=== PATIENT | male | born 1975 | race African-American/Black ===

== ENCOUNTER 2022-12-30 09:41 | Inpatient (IN) | payer BC ==
[2022-12-30] MEDS ORDERED: LEVALBUTEROL 1.25 MG/3 ML NEB ONE (10:26)
[2022-12-30] MEDS ORDERED: FUROSEMIDE 20 MG/ 2ML VIAL ONE (10:27)
[2022-12-30 10:41] LABS: SARS-CoV-2 Antigen Rapid Res Negative (Negative)
[2022-12-30 11:14] LABS: Absolute Lymphocytes (CBC) 2.6 K/uL (0.7-4.9); Lymphocytes % 23.4 % (15.3-44.8); MCV 85.2 fL (80-100); MPV 8.6 fL (7.6-11.3); RBC Red Blood Cell Count 5.86 M/uL (4.33-5.43)
[2022-12-30 11:15] LABS: Protime INR 0.93
--- NOTE | 2022-12-30 11:21 | ER ---
Nurse's Notes [facility] [place] Name: Duane Lazcano Age: 47 yrs Sex: Male : 1975 Arrival Date: 12/30/2022 Time: 09:44 Bed 20 Private MD: Jules Perdue V Diagnosis: Edema, unspecified;Dyspnea Presentation: 12/30 09:57 Chief complaint: Patient states: he was sent by his PCP for possible heart failure. ap3 Patient states he was recently treated for pneumonia at another facility. Patient continues to have shortness of breath on exertion, patient complains of swelling to the lower extremities, and feeling bloated. Coronavirus screen: At this time, the client does not indicate any symptoms associated with coronavirus-19. Ebola Screen: No symptoms or risks identified at this time. Initial Sepsis Screen: Does the patient meet any 2 criteria? RR > 20 per min. HR > 90 bpm. Yes Does the patient have a suspected source of infection? No. Patient's initial sepsis screen is negative. Risk Assessment: Do you want to hurt yourself or someone else? Patient reports no desire to harm self or others. Onset of symptoms was December 23, 2022. 09:57 Method Of Arrival: Ambulatory ap3 09:57 Acuity: MICHELLE 2 ap3 Triage Assessment: 10:28 General: Appears distressed, Behavior is anxious. Pain: Complains of pain in right leg ap3 and left leg Quality of pain is described as tightness. Neuro: Level of Consciousness is awake, alert, obeys commands, Oriented to person, place, time, situation, Gait is steady. Cardiovascular: Patient's skin is warm and dry. Respiratory: Reports shortness of breath Airway is patent. Historical: - Allergies: 10:27 No Known Allergies; ap3 - Home Meds: 10:27 amlodipine oral [Active]; losartan Oral [Active]; ap3 - PMHx: 10:27 Hypertensive disorder; ap3 - Immunization history:: Client reports receiving the 2nd dose of the Covid vaccine. - Social history:: Smoking status: Patient/guardian denies using tobacco. Screenin:44 [facility] ED Fall Risk Assessment (Adult) History of falling in the last 3 months, ld1 including since admission No falls in past 3 months (0 pts). Abuse screen: Denies threats or abuse. Denies injuries from another. Nutritional screening: No deficits noted. Tuberculosis screening: No symptoms or risk factors identified. Assessment: 10:44 General: Appears in no apparent distress. uncomfortable, Behavior is cooperative, ld1 anxious. Pain: Denies pain. Neuro: Level of Consciousness is awake, alert, obeys commands, Oriented to person, place, time, situation. Cardiovascular: Capillary refill < 3 seconds Patient's skin is warm and dry. Rhythm is sinus tachycardia. Cardiovascular:. Respiratory: Reports shortness of breath labored breathing Airway is patent Respiratory effort is even, labored, Breath sounds with crackles bilaterally. the patient has moderate shortness of breath. GI: Abdomen is round non-distended. : No signs and/or symptoms were reported regarding the genitourinary system. EENT: No signs and/or symptoms were reported regarding the EENT system. Derm: No signs and/or symptoms reported regarding the dermatologic system. Musculoskeletal: No signs and/or symptoms reported regarding the musculoskeletal system. 11:48 Reassessment: Patient and/or family updated on plan of care and expected duration. Pain ld1 level reassessed. Pt reports feeling better - "I can breath much better." Ultrasound at bedside. Patient states symptoms have improved. 11:48 Respiratory: Airway is patent Respiratory effort is even, labored, Respiratory pattern ld1 is regular, symmetrical, the patient has mild shortness of breath. Vital Signs: 09:57 BP 167 / 123; Pulse 126; Resp 22; Temp 97.7(O); Pulse Ox 90% on R/A; Weight 130.63 kg; ap3 Height 5 ft. 11 in. (180.34 cm); 10:29 Pulse Ox 96% on 2 lpm NC; ap3 11:42 BP 169 / 103; Pulse 124; Resp 20; Pulse Ox 97% on 3 lpm NC; ld1 11:48 BP 169 / 103; Pulse 119; Resp 27; Pulse Ox 96% on 3 lpm NC; ld1 12:56 BP 153 / 111; Pulse 114; Resp 22; Pulse Ox 96% on 3 lpm NC; ld1 09:57 Body Mass Index 40.17 (130.63 kg, 180.34 cm) ap3 09:57 patient placed on 2 listers nasal canula at this time. patients SpO2 recovered to 96% ap3 once placed on the oxygen. ED Course: 09:44 Patient arrived in ED. as 09:45 Jules Perdue MD is Private Physician. as 09:46 [facility] 09:46 Heladio Macias MD is Attending Physician. jmm 10:02 Triage completed. ap3 10:21 Julianne Goode, RN is Primary Nurse. ld1 10:21 Missed attempt(s): 22 gauge in left antecubital area. db 10:29 Arm band placed on right wrist. ap3 10:29 Patient has correct armband on for positive identification. Bed in low position. Call ap3 light in reach. Side rails up X 1. Adult w/ patient. secured entrance monitor on. Pulse ox on. NIBP on. Door closed. Noise minimized. 10:42 Radiology exam delayed due to patient receiving breathing treatment at this time. hr 10:44 No provider procedures requiring assistance completed. ld1 10:44 Missed attempt(s): 20 gauge in right hand. ld1 11:20 Jules Perdue MD is Hospitalizing Provider. [facility] 11:21 XRAY Chest (1 view) In Process Unspecified. EDMS 12:00 US Extremity Venous W Compression Kwaku In Process Unspecified. EDMS 14:07 Patient admitted, IV remains in place. ld1 Administered Medications: 10:43 Drug: Lasix (furosemide) 20 mg Route: IVP; Site: left hand; ld1 10:43 Drug: Xopenex (levalbuterol) (3) 1.25 mg Route: Inhalation; ld1 Medication: 10:44 VIS not applicable for this client. ld1 Outcome: 11:21 Decision to Hospitalize by Provider. [facility] 14:06 Admitted to Med/surg accompanied by tech, via wheelchair, room 413, with chart, Report ld1 called to KYLE Roche 14:06 Condition: stable 14:06 Instructed on the need for admit. 14:15 Patient left the ED. ld1 Signatures: Dispatcher [employer] EDMS Kan Martin PA PA [facility] Mari Neves Amelia as Prokisch, Amanda, RN RN ap3 Julianne Goode, KLYE RN ld1 Gracie Castle RN RN db Corrections: (The following items were deleted from the chart) 11:49 11:48 Respiratory: Airway is patent Respiratory effort is even, unlabored, Respiratory ld1 pattern is regular, symmetrical, the patient has mild shortness of breath ld1
--- NOTE | 2022-12-30 11:21 | EDPHYS ---
Physician Documentation [facility] Name: Duane Lazcano Age: 47 yrs Sex: Male : 1975 Arrival Date: 12/30/2022 Time: 09:44 Bed 20 Private MD: Jules Perdue V ED Physician Heladio Macias HPI: 12/30 10:34 Is a 47-year-old male with history of hypertension the presents emerged part with [facility] complaints of cough beginning this past Friday with increased shortness of breath beginning Friday. Patient stated having difficulty laying back and breathing. Was seen at a stand-alone ED and diagnosed with pneumonia prescribed oral antibiotics. Patient visited with his primary care provider today who may concerns that the patient may be in congestive heart failure.. Historical: - Allergies: 10:27 No Known Allergies; ap3 - Home Meds: 10:27 amlodipine oral [Active]; losartan Oral [Active]; ap3 - PMHx: 10:27 Hypertensive disorder; ap3 - Immunization history:: Client reports receiving the 2nd dose of the Covid vaccine. - Social history:: Smoking status: Patient/guardian denies using tobacco. ROS: 10:34 Constitutional: Negative for fever, chills, and weight loss, Cardiovascular: Negative [facility] for chest pain, palpitations, and edema. 10:34 Respiratory: Positive for shortness of breath. 10:34 All other systems are negative. Exam: 10:10 ECG was reviewed by the Attending Physician. [facility] 10:34 Constitutional: This is a well developed, well nourished patient who is awake, alert, jmm and in no acute distress. Head/Face: atraumatic. Eyes: EOMI, no conjunctival erythema appreciated ENT: Moist Mucus Membranes Neck: Trachea midline, Supple Chest/axilla: Normal chest wall appearance and motion. 10:34 Abdomen/GI: Non distended Back: Normal ROM Skin: General appearance color normal 10:34 Cardiovascular: Rate: normal, Rhythm: regular, Pulses: no pulse deficits are appreciated. 10:34 Respiratory: mild respiratory distress is noted, Respirations: labored breathing, that is mild, Breath sounds: rales, are scattered. 10:34 Musculoskeletal/extremity: Bilateral pitting edema appreciated, full dorsalis pedis pulse, neurovascular intact. 10:34 Skin: Appearance: Color: normal in color. 10:34 Neuro: Motor: is normal. 10:34 Psych: Behavior/mood is pleasant, cooperative. Vital Signs: 09:57 BP 167 / 123; Pulse 126; Resp 22; Temp 97.7(O); Pulse Ox 90% on R/A; Weight 130.63 kg; ap3 Height 5 ft. 11 in. (180.34 cm); 10:29 Pulse Ox 96% on 2 lpm NC; ap3 11:42 BP 169 / 103; Pulse 124; Resp 20; Pulse Ox 97% on 3 lpm NC; ld1 11:48 BP 169 / 103; Pulse 119; Resp 27; Pulse Ox 96% on 3 lpm NC; ld1 12:56 BP 153 / 111; Pulse 114; Resp 22; Pulse Ox 96% on 3 lpm NC; ld1 09:57 Body Mass Index 40.17 (130.63 kg, 180.34 cm) ap3 09:57 patient placed on 2 listers nasal canula at this time. patients SpO2 recovered to 96% ap3 once placed on the oxygen. MDM: 09:49 Patient medically screened. [facility] 12/30 09:50 Order name: Basic Metabolic Panel; Complete Time: 11:35 [facility] 12/30 09:50 Order name: CBC with Diff; Complete Time: 11:19 [facility] 12/30 09:50 Order name: LFT's; Complete Time: 11:35 [facility] 12/30 09:50 Order name: Magnesium; Complete Time: 11:35 [facility] 12/30 09:50 Order name: NT PRO-BNP; Complete Time: 11:35 [facility] 12/30 09:50 Order name: PT-INR; Complete Time: 11:19 [facility] 12/30 09:50 Order name: Troponin HS; Complete Time: 11:35 [facility] 12/30 09:50 Order name: SARS RAPID; Complete Time: 10:42 [facility] 12/30 11:54 Order name: Basic Metabolic Panel [facility] 12/30 11:54 Order name: Basic Metabolic Panel [facility] 12/30 11:54 Order name: CBC with Automated Diff [facility] 12/30 11:54 Order name: CBC with Automated Diff [facility] 12/30 11:54 Order name: NT PRO-BNP [facility] 12/30 11:54 Order name: NT PRO-BNP [facility] 12/30 09:50 Order name: XRAY Chest (1 view); Complete Time: 11:29 [facility] 12/30 09:50 Order name: EKG; Complete Time: 09:51 [facility] 12/30 09:50 Order name: Cardiac monitoring; Complete Time: 10:21 [facility] 12/30 09:50 Order name: EKG - Nurse/Tech; Complete Time: 10:21 [facility] 12/30 09:50 Order name: IV Saline Lock; Complete Time: 10:43 [facility] 12/30 09:50 Order name: Labs collected and sent; Complete Time: 11:18 [facility] 12/30 09:50 Order name: O2 Per Protocol; Complete Time: 10:22 [facility] 12/30 09:50 Order name: O2 Sat Monitoring; Complete Time: 10:22 [facility] 12/30 10:01 Order name: US Extremity Venous W Compression Kwaku; Complete Time: 12:43 [facility] 12/30 11:54 Order name: Troponin High Sensitivity [facility] 12/30 12:51 Order name: Echo without doppler (2D) [facility] EC:10 Rate is 124 beats/min. Rhythm is regular. QRS [place] is Normal. RI interval is normal. jmm QRS interval is normal. QT interval is normal. No ST changes noted. Reviewed by me. Administered Medications: 10:43 Drug: Lasix (furosemide) 20 mg Route: IVP; Site: left hand; ld1 10:43 Drug: Xopenex (levalbuterol) (3) 1.25 mg Route: Inhalation; ld1 Disposition: 16:22 Co-signature as Attending Physician, Heladio Macias MD I reviewed the patient's care rn provided by the Advanced Practice Provider and agree with the diagnosis and treatment plan. Disposition Summary: 12/30/22 11:21 Hospitalization Ordered Hospitalization Status: Inpatient Admission [facility] Provider: Jules Perdue Location: Telemetry/MedSurg (Inpatient) [facility] Condition: Stable [facility] Problem: new jmm Symptoms: are unchanged [facility] Bed/Room Type: Standard [facility] Room Assignment: 413(12/30/22 12:11) bd Diagnosis - Edema, unspecified jmm - Dyspnea jm Forms: - Medication Reconciliation Form [facility] - SBAR form [facility] Signatures: Dispatcher [employer] EDMS Dirrim, Concepcion bd Kan Martin PA PA jmm Nieto, Roman, MD MD rn Priscilla Ashley RN RN ap3 Julianne Goode RN RN ld1 Corrections: (The following items were deleted from the chart) 12:11 11:21 ila biswas
[2022-12-30 11:28] LABS: Albumin 3.5 g/dL (3.4-5.0); Bilirubin Direct 0.1 mg/dL (0-0.2); Bilirubin Total 0.4 mg/dL (0.2-1.0); Magnesium 2.1 mg/dL (1.6-2.4); Potassium 3.6 mmol/L (3.5-5.1)
--- NOTE | 2022-12-30 11:29 | RAD REPORT ---
EXAM DESCRIPTION: RAD - Chest Single View - 12/30/2022 11:19 am CLINICAL HISTORY: SOB Chest pain. COMPARISON: No comparisons FINDINGS: Portable technique limits examination quality. Moderately severe bilateral pulmonary opacities are present probably representing pulmonary edema. Th e heart is moderately prominent in size. No displaced fractures. IMPRESSION: Probable moderate bilateral pulmonary edema/ CHF.
[2022-12-30 11:34] LABS: Troponin High Sensitivity 99.1 pg/mL (<58.9)
[2022-12-30] MEDS ORDERED: IPRATROPIUM BROM 0.5MG/2.5ML NEB PRN (11:51)
[2022-12-30] MEDS ORDERED: ALBUTEROL 2.5 MG/3 ML NEB SOL NEB PRN (11:51)
[2022-12-30] MEDS ORDERED: ACETAMINOPHEN 500 MG TAB PO PRN (11:51)
[2022-12-30] MEDS ORDERED: ONDANSETRON 4 MG/2 ML VIAL IV PRN (11:51)
--- NOTE | 2022-12-30 12:43 | RAD REPORT ---
EXAM DESCRIPTION: US - Extrem Venous W Compress Kwaku - 12/30/2022 11:58 am CLINICAL HISTORY: SWELLING Bilateral leg edema and swelling. COMPARISON: No comparisons TECHNIQUE: Real-time sonographic interrogation of the left and right lower extremity deep venous sys tems was performed. FINDINGS: Normal compressibility, flow augmentation, phasic flow and spontaneous flow is identified in both the left and right lower extremity deep venous systems. IMPRESSION: No sonographic evidence of left or right lower extremity deep venous thrombosis.
[2022-12-30 14:37] VITALS: BMI 40.1
[2022-12-30] MEDS: carvediloL 12.5 MG TAB PO SCH ×2 (16:56→20:14)
[2022-12-30] MEDS: SACUBITRIL/VALSARTAN 24/26 MG TAB PO SCH ×2 (16:57→20:15)
[2022-12-30] MEDS: FUROSEMIDE 40 MG/4 ML VIAL IV SCH (16:57)
[2022-12-30] MEDS ORDERED: FUROSEMIDE 20 MG/ 2ML VIAL IV SCH (17:00)
--- NOTE | 2022-12-30 20:08 | CON ---
Date of Consultation: 12/30/2022 Reason For Consultation: Congestive heart failure. History Of Present Illness: This is a 47-year-old male with no known history of cardiac disease who presented to the emergency room with shortness of breath, orthopnea, and lower extremity edema that h as been progressing over the past 1 to 2 weeks. Denies having any active chest pain, but he claimed that he is having upper respiratory tract infection that started recently, mainly a dry cough and godfrey t is getting better. He denies having any other complaints. Past Medical History: Hypertension. Medications: Refer to reconciliation sheet for detailed list. Allergies: NO KNOWN DRUG ALLERGIES. Family History: No premature coronary artery disease or cancer. Social History: Does not smoke. Drinks only on occasion. Does not use any drugs. Review of Systems: All systems reviewed and they are negative except for mentioned in HPI. Physical Examination: Vital Signs: Temperature of 97.7, pulse is 114, blood pressure is 158/101, and saturating 96%. General: A pleasant middle-aged male, no apparent distress. Head And Neck: Pupils are equal and reactive to light. Intact eye movements. No JVD. No cervical lymphadenopathy. Neck is supple. Thyroid is not enlarged. Lungs: Clear to auscultation bilaterally. No rhonchi, wheezing, or crackles. No accessory muscle u se. Heart: Regular rate and rhythm. Tachycardic. Abdomen: Soft, nontender. Bowel sounds positive. No organomegaly. No masses or hernia. No rigidi ty or rebound. Extremities: Edema 3+. No clubbing or cyanosis. Intact pulses. Skin: No rash. Neurologic: Alert, awake, and oriented x3. No acute focal deficits appreciated. Investigations: NT-proBNP is 1594. Troponin 99. BUN 15, creatinine 1.07. Hemoglobin 16. Assessment And Recommendation: 1.Acute congestive heart failure. The patient has all the symptoms of heart failure, has JVD and S3 on exam. I agree with IV diuresis and Coreg dose to be adjusted if he tolerates, go up to 25 mg twi ce a day by tomorrow. His ejection fraction on echo is low and he will need ischemia workup, which w kinsey will plan on that once he gets euvolemic. Also recommend to introduce low-dose Entresto once he is diuresed. 2.Elevated troponin. There is no chest pain. Ischemia workup is warranted because of the low eject ion fraction. We will plan on that during this hospital stay. I will discuss the case further with Dr. Perdue. 3.Hypertension. Blood pressure is elevated. Diurese. Coreg is already added and add low-dose MOHIT inhibitor and we will follow from there. SR/MODL Voice ID: [id number] Report ID: [id number]
[2022-12-31 04:00] LABS: Absolute Lymphocytes (CBC) 3.4 K/uL (0.7-4.9); Hematocrit 43.3 % (39.6-49.0); Lymphocytes % 30.9 % (15.3-44.8); MCV 85.9 fL (80-100); RBC Red Blood Cell Count 5.04 M/uL (4.33-5.43)
[2022-12-31 04:18] LABS: Magnesium 1.9 mg/dL (1.6-2.4); Potassium 3.4 mmol/L (3.5-5.1)
--- NOTE | 2022-12-31 08:26 | ECHO ---
HEIGHT: 5 ft 11 in WEIGHT: 287 lb 15.838 oz DATE OF STUDY: 12/30/[address]: STEPH BOLDEN 2-DIMENSIONAL: YES M.MODE: YES DOPPLER: YES COLOR FLOW: YES TDS: PORTABLE: YES DEFINITY: BUBBLE STUDY: DIAGNOSIS: NEW ONSET CONGESTIVE HEART FAILURE CARDIAC HISTORY: CATHERIZATION: SURGERY: PROSTHETIC VALVE: PACEMAKER: MEASUREMENTS (cm) DIASTOLIC (NORMALS) SYSTOLIC (NORMALS) IVSd 1.4 (0.6-1.2) LA Diam 4.1 (1.9-4.0) LVEF 31% LVIDd 5.4 (3.5-5.7) LVIDs 4.6 (2.0-3.5) %FS 15% LVPWd 1.3 (0.6-1.2) Ao Diam 2.6 (2.0-3.7) 2 DIMENSIONAL ASSESSMENT: RIGHT ATRIUM: NORMAL LEFT ATRIUM: ENLARGED RIGHT VENTRICLE: NORMAL LEFT VENTRICLE: DEPRESSED EJECTION FRACTION TRICUSPID VALVE: MILD TRICUSPID REGURGITATION MITRAL VALVE: MILD MITRAL REGURGITATION PULMONIC VALVE: NORMAL AORTIC VALVE: MILD AORTIC INSUFFICIENCY PERICARDIAL EFFUSION: NONE AORTIC ROOT: NORMAL LEFT VENTRICULAR WALL MOTION: MODERATE GLOBAL HYPOKINESIS DOPPLER/COLOR FLOW: SEE BELOW COMMENTS: 1. MODERATELY DEPRESSED LEFT VENTRICULAR EJECTION FRACTION 30-35% 2. MODERATE GLOBAL HYPOKINESIS 3. MILD MITRAL REGURGITATION, TRICUSPID REGURGITATION, AORTIC INSUFFICIENCY 4. DIASTOLIC DYSFUNCTION 5. SEVERE PULMONARY HYPERTENSION WITH RIGHT VENTRICULAR SYSTOLIC PRESSURE GREATER THAN 60 mmHg. TECHNOLOGIST: MALA CISNEROS
[2022-12-31] MEDS: SACUBITRIL/VALSARTAN 24/26 MG TAB PO SCH ×2 (08:43→20:40)
[2022-12-31] MEDS: carvediloL 12.5 MG TAB PO SCH ×2 (08:43→20:40)
[2022-12-31] MEDS: FUROSEMIDE 40 MG/4 ML VIAL IV SCH ×2 (08:43→16:44)
[2022-12-31] MEDS: POTASSIUM CL SA 10 MEQ TAB PO SCH ×2 (08:43→20:40)
[2022-12-31] MEDS ORDERED: POTASSIUM CL SA 10 MEQ TAB PO SCH (09:00)
[2022-12-31] MEDS ORDERED: HEPA 1000U/500MLS 2,000 UNIT/1,000 ML BAG IV ONE (12:39)
[2022-12-31] MEDS ORDERED: MIDAZOLAM HCL 2 MG/2 ML INJ ONE (12:40)
[2022-12-31] MEDS ORDERED: HEPARIN 5000 UNIT/ML 1 ML VIAL ONE (12:40)
[2022-12-31] MEDS ORDERED: VERAPAMIL HCL 10 MG/4 ML VIAL IV ONE (12:40)
[2022-12-31] MEDS ORDERED: FENTANYL CITR 100 MCG/2 ML ONE (12:40)
[2022-12-31] MEDS ORDERED: ATROPINE SULF 1 MG/10 ML SYR IV ONE (12:41)
[2022-12-31] MEDS ORDERED: CLOPIDOGREL 75 MG TABLET ONE (12:41)
[2022-12-31] MEDS ORDERED: HEPARIN 10,000 UNIT/10 ML VIAL IV ONE (12:41)
[2022-12-31] MEDS ORDERED: TICAGRELOR 90 MG TABLET PO ONE (12:41)
[2022-12-31] MEDS ORDERED: ASPIRIN 325 MG TAB ONE (12:41)
[2022-12-31] MEDS ORDERED: NA CHLORIDE 0.9% 500 ML ONE (13:15)
--- NOTE | 2022-12-31 16:59 | EKG ---
Test Date: 2022-12-30 Test Time: 10:09:04 Crimping Machine Operator: NATALIE MEASUREMENT RESULTS: Intervals: Rate: 124 HI: 130 QRSD: 100 QT: 326 QTc: 468 Wright: P: 60 HI: 130 QRS: 67 T: 155 INTERPRETIVE STATEMENTS: Sinus tachycardia Possible Left atrial enlargement Left ventricular hypertrophy Nonspecific T wave abnormality Abnormal ECG No previous ECG available for comparison Electronically Signed On 12-31-22 16:55:08 WARDROBE ATTENDANT by Aime Guzman
--- NOTE | 2022-12-31 21:46 | P.PN ---
Subjective Date of Service: 12/31/22 Chief Complaint: DYSPNEA Subjective: Improving HE IS LOT BETTER. STILL EDEMA AND DYSPNEA. Review of Systems 10-point ROS is otherwise unremarkable General: Weakness Respiratory: Shortness of Breath Physical Examination - Vital Signs Temperature: 97.0 F Blood Pressure: 126/87 Pulse: 96 Respirations: 18 Pulse Ox (%): 96 - Physical Exam General: Oriented x3, Mild distress, Obese HEENT: Atraumatic, PERRLA, EOMI Neck: JVD distended Respiratory: Clear to auscultation bilaterally, Normal air movement Cardiovascular: Regular rate/rhythm, Normal S1 S2 Gastrointestinal: Normal bowel sounds, No tenderness Musculoskeletal: No tenderness Integumentary: No rashes Neurological: Normal speech, Normal tone, Normal affect Lymphatics: No axilla or inguinal lymphadenopathy - Studies Medications List Reviewed: Yes Assessment And Plan - Current Problems (Diagnosis) (1) Dilated cardiomyopathy Current Visit: Yes Status: Acute Plan: VIRAL ETIOLOGY POSSIBLE RULE OUT CAD CATH SOON. PATIENT IS AWARE (2) Acute systolic (congestive) heart failure Current Visit: Yes Status: Acute Plan: LASIX KCL ENTRESTO COREG. PROGNOSIS GUARDED. K CORIE ORELLANA.
[2023-01-01 03:48] LABS: Absolute Lymphocytes (CBC) 3.9 K/uL (0.7-4.9); Hematocrit 47.6 % (39.6-49.0); Lymphocytes % 42.4 % (15.3-44.8); MCV 85.7 fL (80-100); RBC Red Blood Cell Count 5.55 M/uL (4.33-5.43)
[2023-01-01 04:01] LABS: Potassium 3.5 mmol/L (3.5-5.1)
[2023-01-01] MEDS: POTASSIUM CL SA 10 MEQ TAB PO SCH (07:49)
[2023-01-01] MEDS: SACUBITRIL/VALSARTAN 24/26 MG TAB PO SCH (07:50)
[2023-01-01] MEDS: carvediloL 12.5 MG TAB PO SCH (07:50)
[2023-01-01 07:51] VITALS: BP 136/85
[2023-01-01] MEDS: FUROSEMIDE 40 MG/4 ML VIAL IV SCH (07:51)
[2023-01-01 08:55] VITALS: TEMP 97.1
[2023-01-01 10:10] VITALS: O2SAT 98
== END 2023-01-01 10:29 | disposition home or self-care (01) | DRG 291 ==
LOC: ER 09:41 → ERHOLD 11:50 → 4TH 14:11
PROVIDERS: ADMIT Internal Medicine; ATTEND Internal Medicine
DX: I11.0 Hypertensive heart disease with heart failure (principal); I50.21 Acute systolic (congestive) heart failure; Z68.41 Body mass index [BMI] 40.0-44.9, adult; E66.9 Obesity, unspecified; I42.0 Dilated cardiomyopathy; E78.5 Hyperlipidemia, unspecified; R77.8 Other specified abnormalities of plasma proteins; Z79.52 Long term (current) use of systemic steroids; Z79.82 Long term (current) use of aspirin; Z79.899 Other long term (current) drug therapy; Z20.822 Contact with and (suspected) exposure to COVID-19
CPT/HCPCS: 36415; 71045; 80048; 80076; 83735; 83880; 84484; 85025; 85610; 87811; 93005; 93306; 93458; 93970; 96374; 99285; C1893; J0461; J1644; J1940; J2250; J3010; J7040; J7614; Q9966